=== PATIENT | male | born 1990 | race Caucasian/White ===

== ENCOUNTER 2024-05-15 13:21 | Emergency (ER) | payer OTHER, SELFPAY ==
[2024-05-15 13:45] VITALS: BP 108/68; PULSE 65; RESP 15; TEMP 36.8; O2SAT 98
[2024-05-15 14:01] LABS: EDINFLUASCREEN Negative; EDINFLUBSCREEN Negative
--- NOTE | 2024-05-15 14:14 | ED.GENADULT ---
HPI - General Adult General Chief complaint: Upper Respiratory Infection Stated complaint: Fever / body chills / upper body numbness /diarrhe Time Seen by Provider: 05/15/24 14:00 Source: patient Mode of arrival: ambulatory Limitations: no limitations History of Present Illness HPI narrative: 34-year-old male with history of MS presents with complaint of fatigue, body aches, chills, diarrhea starting yesterday evening. Patient does not feel that any symptoms are related to his MS. Denies cough, congestion, sore throat. No nausea vomiting. Patient requesting work note to excuse him from work for today. All systems reviewed and negative except as noted above. Related Data Home Medications Medication Instructions Recorded Confirmed sertraline 100 mg tablet 100 mg PO DAILY 05/15/24 05/15/24 Allergies Allergy/AdvReac Type Severity Reaction Status Date / Time No Known Allergies Allergy Verified 05/15/24 13:42 Review of Systems Review of Systems: CONSTITUTIONAL: Denies fever . Reports chills, or sweats. EYES: Denies visual changes, redness, or discharge. ENT: Denies rhinorrhea, congestion, sore throat, or otalgia. CARDIOVASCULAR: Denies chest pain, palpitations, or edema. RESPIRATORY: Denies cough or dyspnea. GASTROINTESTINAL: Denies abdominal pain, nausea, vomiting. Reports diarrhea. GENITOURINARY: Denies dysuria or hematuria. SKIN: Denies rash or itching. MUSCULOSKELETAL: Denies back pain, joint pain. Reports myalgia. NEUROLOGIC: Denies headache, numbness, or weakness. PSYCHIATRIC: Denies anxiety or depression. All other systems reviewed are negative, except as documented in HPI. PMFSH Comments At time of signature, agree with nursing past medical, surgical, social and family history. There is no relevant family history pertinent to the presenting complaint. Exam Narrative: GENERAL: This is a well-nourished, well-developed patient, ill-appearing but in no acute distress HEAD: normocephalic, atraumatic. EYES: PERRL. Sclera clear/white. Vision is grossly intact. EARS: External ears normal, auditory canals clear and without drainage, TMs normal without perforation. Hearing grossly intact. NOSE: External nose normal with no obvious nasal discharge, nares without redness, no rhinorrhea. THROAT: Mucous membranes moist, posterior pharynx clear. NECK: Neck supple, non-tender without lymphadenopathy, masses or thyromegaly. CARDIOVASCULAR: Regular rate and rhythm without murmurs, gallops, or rubs. RESPIRATORY: Clear to auscultation. Breath sounds equal bilaterally. No wheezes, rales, or rhonchi. GASTROINTESTINAL: Abdomen soft, non-tender, nondistended. Bowel sounds are active. No hepato-splenomegaly, or palpable masses. No guarding. SKIN: warm, Dry, intact with no suspicious lesions or rash, good texture and turgor. NEURO: awake, alert, and oriented to person, place and time. There were no obvious focal neurologic abnormalities. EXTREMITIES: No joint tenderness, effusion, or edema noted. Course Course Level of Care: Express Care Visit Vital Signs Vital signs: Vital Signs Temperature 36.8 C 05/15/24 13:45 Pulse Rate 65 05/15/24 13:45 Respiratory Rate 15 05/15/24 13:45 Blood Pressure 108/68 05/15/24 13:45 Pulse Oximetry 98 05/15/24 13:45 Oxygen Delivery Room Air 05/15/24 13:45 Temperature 36.8 C 05/15/24 13:45 Pulse Rate 65 05/15/24 13:45 Respiratory Rate 15 05/15/24 13:45 Blood Pressure 108/68 05/15/24 13:45 Pulse Oximetry 98 05/15/24 13:45 Oxygen Delivery Room Air 05/15/24 13:45 reviewed Medical Decision Making MDM Narrative Medical decision making narrative: negative COVID and influenza Test. Normal exam. Patient nontoxic. Recommend follow-up with primary care physician as needed. Treat at home with [id number] for viral symptoms. Patient is aware of diagnosis, understands and agrees to treatment plan. Anticipatory guidance given.
== END 2024-05-15 14:12 | disposition home or self-care (01) ==
PROVIDERS: Emergency Provider Nurse Practitioner Family
DX: B34.9 Viral infection, unspecified (principal); Z20.822 Contact with and (suspected) exposure to COVID-19; G35 Multiple sclerosis; F41.9 Anxiety disorder, unspecified; F32.A Depression, unspecified
CPT/HCPCS: 87426; 87804; 99213; G0463